=== PATIENT | female | born 1965 | race Caucasian/White ===

== ENCOUNTER → 2016-09-11 | Outpatient (CLI) | payer OTHER ==
[~2016-09-11] VITALS: Ht 167.6 cm; Wt 59.8 kg
[~2016-09-11] MED LIST: AMITRIPTYLINE H10 M3 PO; CALCIUM 500 +1 EAC5 PO; CELEBREX 200 M200 MG PO; CYMBALTA60 MG PO; DOLOPHINE HCL5 MG PO; FIBER0.52 G1 PO; FISH OIL 1,001000 M2 PO; GLUCOSAMINE &1 EAC1 PO; LEVOTHYROXIN0.088 MG PO; LEVOTHYROXIN0.112 M1 PO; LIORESAL 10 MG10 MG PO; LIPITOR10 MG PO; LYRICA 50 MG50 MG PO; LYRICA 75 MG CA75 MG PO; LYRICA150 MG PO; NEURONTIN 300300 M1 PO; NEURONTIN600 MG PO; OXYCODONE HCL 55 MG PO; PRISTIQ100 MG PO; TRAMADOL 50 MG50 MG PO; TRAZODONE HCL50 MG PO; TRILEPTAL150 MG PO; TRILEPTAL600 MG PO; VOLTAREN GEL 1100 G2 TOP; ZANAFLEX4 MG PO
--- NOTE | ~2016-09-11 | HPC ---
[facility] [address] [place] [address] PAIN MANAGEMENT CONSULTATION Name: SHITAL CAMACHO Room #: REG ADEBAYO Solitario#: [id number] Admission: 09/11/16 Attend Phys: Bob Byrd DO Discharge: Date of : 69 Report #: [id number] THIS REPORT FOR: //name// CC: Giovani Byrd HISTORY: The patient is a 51-year-old female, well known to pain clinic, typically treated for neuropathic pain of right upper extremity, requiring complex medication management and CRPS, right upper extremity with a component of myofascial pain. Last seen in the pain clinic 08/14/2016. She was actually doing very well at that time. Unfortunately, she tells me that last week while pushing a shopping cart in the grocery store, she had the cart nearly turned over. She quickly grabbed the cart and has had significant exacerbation of her neck, shoulder and right arm pain since that time. Today, we did spend a prolonged visit from 1445 to 1510 reviewing current issues. She notes that the right side seems to be getting worse with a deep burning pain. Prior symptoms had been pertinent from the elbow down. Now she has pain in the neck, shoulder and upper arm as well. Primarily right, but a little bit of left side as well. Burning, cramping, deep aching sensation. She has been taking hydrocodone fairly regularly (she typically takes oxycodone 5/325 on a non-daily basis). Continues with gabapentin 600 mg t.i.d. and we had titrated Trileptal up to 600 mg at bedtime since she has found this efficacious as well. PHYSICAL EXAMINATION: GENERAL: Shows a 51-year-old female. BMI is 29.7 kilograms per meter squared. VITAL SIGNS: Stable as noted in the EMR. NECK: Cervical range of motion is limited. MUSCULOSKELETAL: Very tight trapezius, splenius capitis and upper suprascapular muscles on the right side. Tender over the deltoid and upper arm as well, with no discrete trigger points noted in the arm itself. ASSESSMENT: Acute myofascial pain component in a patient with prior complex regional pain syndrome, right upper extremity and neuropathic pain, requiring complex medication management. RECOMMENDATIONS: 1. We talked about trigger point injections. We will defer those at this time. 2. Topical Voltaren gel. The patient will hold off on oral nonsteroidal anti-inflammatory medications; she has been using a fairly copious load of OTC ibuprofen and she does have a minor elevation in her BUN and creatinine per the patient. We will renew the Trileptal, but as a single 600 mg tablet at bedtime and start tizanidine 4 mg t.i.d. for spasm. The patient does not require a prescription [place] [address] PAIN MANAGEMENT CONSULTATION Name: SHITAL CAMACHO Room #: REG ADEBAYO Solitario#: [id number] Admission: 09/11/16 Attend Phys: Bob Byrd DO Discharge: Date of : 69 Report #: [id number] Discharged in good stable condition after approximately 25+-minute visit spent counseling the patient. <ELECTRONICALLY SIGNED> By: Bob Byrd DO 09/17/16 1031 0708 1003 Bob Byrd DO /nt
[2016-09-11 14:26] VITALS: BP 149/90
== END | disposition home or self-care (01) ==
LOC: PAIN 07:33
DX: M79.1 Myalgia (principal); G90.511 Complex regional pain syndrome I of right upper limb; M79.2 Neuralgia and neuritis, unspecified

== ENCOUNTER → 2016-12-18 | Outpatient (CLI) | payer OTHER ==
[~2016-12-18] VITALS: Ht 167.6 cm; Wt 59.1 kg
[~2016-12-18] MED LIST changes: +LEVOTHYROXIN0.137 M1 PO
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
[2016-12-18 08:05] VITALS: BP 127/81
== END ==
LOC: PAIN 07:00
DX: G90.511 Complex regional pain syndrome I of right upper limb (principal); F10.21 Alcohol dependence, in remission

== ENCOUNTER → 2017-05-25 | Outpatient (CLI) | payer OTHER ==
[~2017-05-25] VITALS: Ht 167.6 cm; Wt 59.2 kg
--- NOTE | ~2017-05-25 | HPC ---
[facility] [place] [address] [address] PAIN MANAGEMENT CONSULTATION Name: SHITAL CAMAHCO Room #: REG James Solitario#: [id number] Admission: 05/25/17 Attend Phys: Bob Byrd DO Discharge: Date of : 69 Report #: [id number] THIS REPORT FOR: //name// CC: Giovani Byrd DATE OF SERVICE: 05/25/2017 HISTORY OF PRESENT ILLNESS: The patient is a 52-year-old female along the pain clinic, we have treated for RSD, right greater than left upper extremity, neuropathic pain requiring high risk complex medication management. Last seen in the pain clinic on 12/18/2016. Continue Trileptal 600 mg at bedtime, gabapentin 600 mg t.i.d. I added 300 mg to titrate it up to t.i.d. Continue oxycodone 5 mg. She used rarely 90 tablets over last for now some 5 months period. She returns to pain clinic today; however, noting that RSD seems to be exacerbating. It is in both upper extremities now, fairly symmetric. Right arm worse than left, but left getting worse still. She has a spinal cord stimulator in place which she filled in both upper extremities, but unfortunately she notes pain is becoming more and more problematic. Today, we had a long discussion about ongoing therapeutic options. I informed her of the clinical trial by Dr. Mary Gentile for a clinical trial using a fusion of substance specifically for RSD and neuropathic pain. After discussion today, the patient expressed significant interest. I believe she may be a candidate, but I am not entirely clear on all of the parameters for studies. She was given contact information for Dr. Gentile's ____ facility. Otherwise, the patient notes pain again is becoming more problematic, rates as 6 on VAS. Again, both arms are problematic. PHYSICAL EXAMINATION: Relatively unchanged, otherwise BMI is 21.1 kilograms per meter squared. Blood pressure 133/94, pulse 88, respirations 16. Alert and oriented to person, place, and time, judged to be a reasonable historian. Hyperpathia allodynia about both arms at this point. ASSESSMENT: Neuropathic pain, bilateral upper extremities, right greater than left, neuropathic pain requiring high-risk complex medication management. RECOMMENDATION: [address] [address] PAIN MANAGEMENT CONSULTATION Name: SHITAL CAMACHO Room #: REG ADEBAYO Solitario#: [id number] Admission: 05/25/17 Attend Phys: Bob Byrd DO Discharge: Date of : 69 Report #: [id number] 1. Continue oxycodone 5 mg, dispensed 90 tablets. Not more than 1 up to 6 hours, Trileptal, we will start 300 mg in the morning, continue 600 mg at bedtime, continue gabapentin 900 mg t.i.d. Follow up in 1 month for reevaluation. We will evaluate efficacy of adding the increased dose of the Trileptal and hopefully will have some news on the trial with Dr. Gentile. By: 1641 0456 Bob Byrd DO /nt
[2017-05-25 10:47] VITALS: BP 133/94
== END | disposition home or self-care (01) ==
LOC: PAIN 07:10
DX: Z76.0 Encounter for issue of repeat prescription (principal); G90.513 Complex regional pain syndrome I of upper limb, bilateral; Z98.890 Other specified postprocedural states; Z79.891 Long term (current) use of opiate analgesic

== ENCOUNTER → 2017-06-22 | Outpatient (CLI) | payer OTHER ==
[~2017-06-22] VITALS: Ht 167.6 cm; Wt 57.2 kg
--- NOTE | ~2017-06-22 | HPC ---
[facility] [address] [place] [address] PAIN MANAGEMENT CONSULTATION Name: SHITAL CAMACHO Room #: REG ADEBAYO Solitario#: [id number] Admission: 06/22/17 Attend Phys: Bob Byrd DO Discharge: Date of : 69 Report #: [id number] THIS REPORT FOR: //name// CC: Giovani Byrd DATE OF SERVICE: 06/22/2017 The patient is a 52-year-old female, long known to the pain clinic for RSD, right greater than left upper extremity. She has been stable. Her last visit was 05/25/2017. She has a spinal cord stimulator, which has been helpful (cervical). We increased Trileptal from 600 mg at bedtime to 150 in the morning and 600 at night, increased gabapentin from 600 mg t.i.d. to 900 mg t.i.d. She has oxycodone 5 mg p.r.n. breakthrough pain. I had suggested she follow up with Dr. Ry Gentile regarding possibility for entrance into a study for investigational drug for RSD (neridronate acid). Unfortunately, that study by reports is full. The patient returns to pain clinic today. She is frustrated. She was seen for prolonged visit from 10:38 to 11:05. Greater than 50% of the 25+ minute visit was spent in counseling the patient. She notes that she feels that her baseline is "shifting." She is not having any acute flare, she states, her pain has still been getting worse. She has significant hyperpathia, allodynia right arm from about mid upper arm down to the elbow, forearm, wrist and hand. She does have significant decreased muscle mass in the right greater than left, has hyperpathia and allodynia. Left arm is similarly problematic, but better overall. She is unable to dorsiflex her right hand due to exquisite pain; left hand dorsiflexion is limited as well. We discussed therapeutic options. We have done stellate ganglion blocks with really dwindling efficacy. Ongoing significant increased pain on the right side with increasing baseline pain despite therapeutic opiate analgesics, membrane stabilizing agents (both sodium and calcium channel membrane stabilizing agents, Trileptal and gabapentin). We have failed NMDA receptor orally, Namenda. I talked about therapeutic options. I talked about an infusion of either lidocaine or ketamine. After a long discussion we elected to trial a ketamine infusion 1.5 mg/kg in 100 mL of normal saline over 1 hour. The patient will need to be monitored during the infusion and for approximately 2 hours afterwards. She will need a charter bus driver with her. The patient is interested in pursuing this therapeutic modality. We will plan on trying to get this done either or Thursday this week. Discharged in good and stable condition after prolonged visit, no medication changes required at this time. In total [address] [address] PAIN MANAGEMENT CONSULTATION Name: SHITAL CAMACHO Room #: REG ADEBAYO Solitario#: [id number] Admission: 06/22/17 Attend Phys: Bob Byrd DO Discharge: Date of : 69 Report #: [id number] spent 25+ minutes discussing therpeutic options, as well as appropriate outcome expectations. <ELECTRONICALLY SIGNED> By: Bob Byrd DO 06/24/17 0802 1216 1401 Bob Byrd DO /nt
== END | disposition home or self-care (01) ==
LOC: PAIN 07:07
DX: Z76.0 Encounter for issue of repeat prescription (principal); G90.513 Complex regional pain syndrome I of upper limb, bilateral; Z98.890 Other specified postprocedural states; Z96.89 Presence of other specified functional implants

== ENCOUNTER → 2017-06-26 | Outpatient (CLI) | payer OTHER ==
[~2017-06-26] VITALS: Ht 167.6 cm; Wt 57.0 kg
--- NOTE | ~2017-06-26 | HPC ---
[facility] [place] [address] [place] [address] PAIN MANAGEMENT CONSULTATION Name: SHITAL CAMACHO Room #: REG ADEBAYO Solitario#: [id number] Admission: 06/26/17 Attend Phys: Bob Byrd DO Discharge: Date of : 69 Report #: [id number] THIS REPORT FOR: //name// CC: Giovani Byrd The patient is a 52-year-old female being treated for CRPS, right greater than left upper extremity. She has failed multiple conservative therapies including spinal cord stimulator, multiple stellate ganglion blocks, and membrane stabilizing agents. Last visit 06/22/2017, we discussed ketamine infusion. The patient presents to the pain clinic today for this procedure. She notes pain is a 7 on VAS. PROCEDURE: Ketamine infusion with monitoring. Ketamine infusion run over 1-hour (09:38 to approximately 10:33). Post-procedure monitoring from 10:33-13:23. PROCEDURE NOTE: After written informed consent was obtained, I started a 20-gauge Angiocath in the left antecubital fossa. The patient was kept supine with head of bed elevated somewhat. EKG, pulse oximeter, and blood pressure monitoring were attached. Infusion was run over 1 hour, infused approximately 50 mg of ketamine (55 mL of the 100 mL solution containing 90 mg of ketamine). I elected to lower the dose to approximately 1 mg/kg due to the patient's cognitive changes. She did well throughout the infusion, though did state she started to feel "stoned." She was very relaxed throughout. She noted at multiple points throughout the infusion that her pain was improved. She could move her right hand well. She stated that right hand felt warm, which had not in quite some time. Infusion was stopped. The patient's monitoring was continued again for another 3 hours. She slept on and off. Did have some diplopia. States she had some vivid dreams, though no anxiety provoking issues were noted, no dysphoria per the patient. Ultimately, she was discharged at 13:23. Monitors were discontinued. Vital signs remained stable throughout. She was assisted to car, a friend drove her home. She was cautioned against drinking any alcoholic beverages this evening. Continue baseline medications unchanged. She was unable to give a visual analog pain score on leaving; however, she did note the hand was warmer, she moved it much more freely. She was noted to be playing with her hair using her right and left hand. She used her phone using both hands. Seemed to have improved functional status. Plan on following up in 3 weeks to have retrospective review of improvement. If she has ongoing improvement at 3 weeks, we will consider repeat infusion. If; however, she only as transient improvement, we may decide that the risks outweigh the benefits for only short term relief. [facility] [address] [place] [address] PAIN MANAGEMENT CONSULTATION Name: SHITAL CAMACHO Room #: REG ADEBAYO Solitario#: [id number] Admission: 06/26/17 Attend Phys: Bob Byrd DO Discharge: Date of : 69 Report #: [id number] Discharged in good and stable condition after one hour ketamine infusion and prolonged monitoring She was in the clinic for 4 hours total. <ELECTRONICALLY SIGNED> By: Bob Byrd DO 06/29/17 0657 1516 1750 Bob Byrd DO /nt
[2017-06-26 09:30] VITALS: BP 126/91
== END ==
LOC: PAIN 06-25 08:25
DX: G90.513 Complex regional pain syndrome I of upper limb, bilateral (principal)

== ENCOUNTER → 2017-09-25 | Outpatient (CLI) | payer OTHER ==
[~2017-09-25] VITALS: Ht 167.6 cm; Wt 62.1 kg
[~2017-09-25] MED LIST changes: +MAGOX 400400 MG PO
--- NOTE | ~2017-09-25 | HPC ---
[facility] [place] [address] [place] [address] PAIN MANAGEMENT CONSULTATION Name: SHITAL CAMACHO Room #: REG ADEBAYO Solitario#: [id number] Admission: 09/25/17 Attend Phys: Bob Byrd DO Discharge: Date of : 69 Report #: [id number] THIS REPORT FOR: //name// CC: Giovani Byrd DATE OF SERVICE: 09/25/2017 HISTORY OF PRESENT ILLNESS: The patient is a 52-year-old female, chronically treated for originally right and now a little bilateral upper extremity RSD. The patient's problems began following a thermoplasty of the right shoulder for chronic subluxation. She has had significant RSD of right upper extremity since. I believe I took over her care in 05/2014. We did some stellate ganglion blocks with transient efficacy. Ultimately proceeded with spinal cord stimulator trial and implant in 09/2014. We have kept the patient on a moderately high dose membrane stabilizing agents. With ongoing increasing symptoms, we progressed to trial a ketamine infusion, 06/26/2017. The patient notes she prior had a ketamine infusion back in [place] before 2013. Unfortunately, this afforded really only a few days relief and pain returned to baseline. She returns to pain clinic today. She is frustrated and getting more depressed. She notes she has had 19 years of chronic pain in her right and 2 years of chronic pain in the left arm. She describes throbbing, burning, cramping, lightening strike sensation. She rates it is a 7.5 on a VAS. Pain is exacerbated with repetitive touch. 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 She has trialed acupuncture, which did not help. States a massive flare-up recently, states typically following her flare-ups, her pain would reset; unfortunately this time, it is reset much higher. She states any movement of her right upper extremity causes pain. PHYSICAL EXAMINATION: GENERAL: Unchanged, 52-year-old female, BMI is 22.1 kilograms per meter squared. VITAL SIGNS: We did not take blood pressure on the upper extremities due to RSD exacerbation. Pulse is 78, respirations 16, room air oxygen saturation 100%. MUSCULOSKELETAL: Cervical range of motion is generally full. Again, decreased range of motion of the right arm with some hyperpathia, allodynia noted from the forearm down. There are some skin changes. Otherwise physical exam is unremarkable. We reviewed the fact that opiate medications are being used to provide analgesia adequate to support activities of daily living, not attempting to achieve a specific pain score on the 0-10 Visual Analog Scale. The current opiate medications are providing sufficient analgesia to allow the patient to participate in activities of daily living. The patient is not exhibiting any aberrant behavior suggestive of drug diversion. [place] [address] PAIN MANAGEMENT CONSULTATION Name: SHITAL CAMACHO Room #: REG ADEBAYO Solitario#: [id number] Admission: 09/25/17 Attend Phys: Bob Byrd DO Discharge: Date of : 69 Report #: [id number] adverse reactions to medications. The patient is not suffering from daytime somnolence or mental acuity changes. The patient is managing opiate-induced constipation with appropriate wjij-oxo-xcejxvu agents and dietary considerations. The patient was counseled on concern for caution with operating a motor vehicle while using opiate medications. A physical exam was performed and the patient's functional status was evaluated. All patients with back pain were advised against the bed rest greater than 4 days and were advised to return to normal activities. Pain score assessment was noted and the treatment plan was reviewed with the patient. All current medications, both prescribed and OTC were reviewed and reconciled on the electronic medical record. Tobacco screening was accomplished and smoking cessation was advised when indicated. BMI was noted and diet/exercise modification was recommended for all patients following outside normal parameters. I reviewed with the patient today their responsibilities to safeguard prescription medications, reviewed their responsibility to utilize medications only as prescribed by the physician. They are to seek and receive pain medications only from 1 physician group ( [facility]). They are to use 1 pharmacy and keep the clinic informed if they change pharmacies. Their responsibilities include making followup visits in a timely fashion and to avoid abrupt discontinuation of medication usage. Their responsibilities further include bringing their medications (bottles from the pharmacy with residual pills) to the visit for possible confirmation of pill counts and the patient understands it is their responsibility to submit to random drug screens to ensure both that the medications prescribed are present, and that no other controlled substances are present. All prescriptions provided today were generated electronically. Long discussion with the patient today about therapeutic option. She tells me today that oxycodone really does not afford any relief. We elected to discontinue. We will continue Trileptal 150 mg t.i.d., gabapentin 900 mg t.i.d. After the patient left, I had considered we may trial levorphanol 2 mg b.i.d. for pain. With NMDA activity, this may help, though we have tried Namenda in the past with really no improvement of her symptoms. I am stymied to think of any other options to help this patient, we may certainly go back and trial one more series of stellate ganglion blocks. Presently, however, I did fill out some paperwork for the patient regarding request for a reasonable accommodation including voice recognition software and a modified work they schedule. The patient was discharged in good and stable condition. Again, we will [facility] [address] [place] [address] PAIN MANAGEMENT CONSULTATION Name: SHITAL CAMACHO Room #: REG James Solitario#: [id number] Admission: 09/25/17 Attend Phys: Bob Byrd DO Discharge: Date of : 69 Report #: [id number] consider addition of LEVORPHANOL and/or repeating stellate ganglion blocks at next visit. <ELECTRONICALLY SIGNED> By: Bob Byrd DO 09/28/17 0816 1335 0814 Bob Byrd DO /nt
== END ==
LOC: PAIN 06:52
DX: G90.513 Complex regional pain syndrome I of upper limb, bilateral (principal)